=== PATIENT | male | born 1955 | race African-American/Black ===

== ENCOUNTER 2017-03-02 00:41 | Emergency (ER) | payer SELFPAY ==
[~2017-03-02] VITALS: Ht 175.3 cm; Wt 68.2 kg
[~2017-03-02 00:41] MED LIST: AMOXICILLIN500 MG OR; ASPIRIN325 MG PO; BACTRIM DS1 TAB PO; CEPHALEXIN500 MG OR; CIPROFLOXACN500 MG PO; CLONIDINE0.1 MG PO; CLONIDINE0.2 MG PO; HYDRALAZINE25 MG PO; LISINOPRIL; LISINOPRIL10 MG PO; LOPRESSOR50 M1 PO; LORTAB 5/3255 MG PO; MAXIDE1 COMBO PO; METOPROL TAR100 MG PO; METOPROL TAR50 MG PO; NO; NO HOME MEDS; NORVASC PO; ZESTRIL OR
[2017-03-02 01:36] LABS: HEMATOCRIT 39.9 % (39.0-50.0); HEMOGLOBIN 12.9 g/dl (14.0-18.0); IMMATURE GRANULOCYTES 0.3 % (0.0-1.0); MEAN CELL VOLUME 78.9 fL CALC (80.0-100.0); MEAN CORPUSCULAR HGB 25.5 pG CALC (26.0-32.0); MEAN CORPUSCULAR HGB CONC 32.3 g/L CALC (32.0-36.0); NEUT# 4.38 thou/uL (1.82-7.42); RED BLOOD COUNT 5.06 mill/uL (4.70-6.10)
[2017-03-02 01:51] LABS: ALBUMIN 4.4 g/dL (3.2-5.0); ALKALINE PHOSPHATASE 49 u/l (38-126); ANION GAP 16 (6-22 (CALC)); BILIRUBIN, TOTAL 0.5 mg/dL (0.0-1.4); BUN 17 mg/dL (9-20); BUN/CREATININE RATIO 11 (12-20 (CALC)); CALCIUM 9.9 mg/dL (8.4-10.2); CARBON DIOXIDE 25 mmol/l (22-30); CHLORIDE 106 mmol/l (95-108); CREATININE 1.6 mg/dL (0.7-1.3); GFR 44 ML/MIN (>=60 (CALC)); GFR FOR AFR.AMER. 54 ML/MIN (>=60 (CALC)); GLUCOSE 164 mg/dL (75-110); POTASSIUM 4.1 mmol/l (3.5-5.1); SGOT/AST 19 u/l (17-59); SGPT/ALT 27 u/l (21-72); SODIUM 142 mmol/l (137-146); TOTAL PROTEIN 7.5 g/dL (6.3-8.2)
[2017-03-02 02:04] LABS: MYOGLOBIN 120 ng/mL (0 - 121)
[2017-03-02 04:26] LABS: URINE BILIRUBIN - DIPSTICK NEGATIVE (NEGATIVE); URINE BLOOD DIPSTICK NEGATIVE (NEGATIVE); URINE CLARITY CLEAR; URINE COLOR YELLOW; URINE GLUCOSE - DIPSTICK NEGATIVE (NEGATIVE); URINE KETONE TRACE mg/dL (NEGATIVE); URINE LEUK ESTERASE NEGATIVE (NEGATIVE); URINE NITRITE - DIPSTICK NEGATIVE (Negative); URINE PROTEIN - DIPSTICK TRACE mg/dL (NEG-TRACE); URINE SPECIFIC GRAVITY 1.015; URINE UROBILINOGEN - DIPSTICK 0.2 E.U./dL (0.2)
[2017-03-02 04:33] LABS: BARBITURATES NEGATIVE (NEGATIVE); COCAINE NEGATIVE (NEGATIVE); METHADONE NEGATIVE (NEGATIVE); OXCYCODONE NEGATIVE (NEGATIVE); TETRAHYDROCANNABIONOL NEGATIVE (NEGATIVE); TRICYLIC ANTIDEPRESSANTS NEGATIVE (NEGATIVE)
[2017-03-02] MEDS ORDERED: CLONIDINE0.1 MG PO (05:13)
[2017-03-02 05:30] VITALS: BP 113/67
== END 2017-03-02 05:35 | disposition home or self-care (01) | DRG 305 ==
LOC: ED 00:41
PROVIDERS: Emergency Medicine
DX: I10 Essential (primary) hypertension (principal); R41.82 Altered mental status, unspecified

== ENCOUNTER 2017-03-03 11:17 | Emergency (ER) | payer SELFPAY ==
[~2017-03-03] VITALS: Ht 175.3 cm; Wt 80.0 kg
[2017-03-03 11:49] LABS: HEMATOCRIT 40.1 % (39.0-50.0); MEAN CELL VOLUME 78.6 fL CALC (80.0-100.0); MEAN CORPUSCULAR HGB 25.5 pG CALC (26.0-32.0); MEAN CORPUSCULAR HGB CONC 32.4 g/L CALC (32.0-36.0); NEUT# 2.32 thou/uL (1.82-7.42); RED BLOOD COUNT 5.1 mill/uL (4.70-6.10)
[2017-03-03 12:06] LABS: PROTHROMBIN TIME 11.1 SECONDS (9.0-12.5)
[2017-03-03 12:08] LABS: ALBUMIN 4.1 g/dL (3.2-5.0); ALKALINE PHOSPHATASE 45 u/l (38-126); ANION GAP 16 (6-22 (CALC)); BILIRUBIN, TOTAL 0.4 mg/dL (0.0-1.4); BUN 16 mg/dL (9-20); BUN/CREATININE RATIO 10 (12-20 (CALC)); CALCIUM 9.7 mg/dL (8.4-10.2); CARBON DIOXIDE 25 mmol/l (22-30); CHLORIDE 105 mmol/l (95-108); CREATININE 1.6 mg/dL (0.7-1.3); GFR 44 ML/MIN (>=60 (CALC)); GFR FOR AFR.AMER. 54 ML/MIN (>=60 (CALC)); GLUCOSE 109 mg/dL (75-110); LIPASE 79 u/l (23-300); POTASSIUM 4.5 mmol/l (3.5-5.1); SGOT/AST 17 u/l (17-59); SGPT/ALT 28 u/l (21-72); SODIUM 141 mmol/l (137-146); TOTAL PROTEIN 7.2 g/dL (6.3-8.2)
[2017-03-03 12:09] LABS: ETHYL ALCOHOL 0 mg/dl (0-30)
[2017-03-03 12:19] LABS: MYOGLOBIN 100 ng/mL (0 - 121)
[2017-03-03 13:55] LABS: URINE BILIRUBIN - DIPSTICK NEGATIVE (NEGATIVE); URINE BLOOD DIPSTICK NEGATIVE (NEGATIVE); URINE CLARITY TURBID; URINE COLOR YELLOW; URINE GLUCOSE - DIPSTICK NEGATIVE (NEGATIVE); URINE KETONE NEGATIVE (NEGATIVE); URINE LEUK ESTERASE NEGATIVE (NEGATIVE); URINE NITRITE - DIPSTICK NEGATIVE (Negative); URINE PROTEIN - DIPSTICK NEGATIVE (NEG-TRACE); URINE UROBILINOGEN - DIPSTICK 0.2 E.U./dL (0.2)
[2017-03-03 13:59] LABS: BARBITURATES NEGATIVE (NEGATIVE); COCAINE NEGATIVE (NEGATIVE); METHADONE NEGATIVE (NEGATIVE); OXCYCODONE NEGATIVE (NEGATIVE); TETRAHYDROCANNABIONOL NEGATIVE (NEGATIVE); TRICYLIC ANTIDEPRESSANTS NEGATIVE (NEGATIVE)
[2017-03-03 15:10] VITALS: BP 121/58
== END 2017-03-03 15:32 | disposition home or self-care (01) | DRG 149 ==
LOC: ED 11:17
PROVIDERS: Emergency Medicine
DX: R42 Dizziness and giddiness (principal)

== ENCOUNTER 2017-03-03 16:48 | Emergency (ER) | payer SELFPAY | END 2017-03-03 17:02 | disposition left against medical advice (07) | DRG 951 | LOC: ED 16:48 → LWOBS 16:58 | DX: Z91.19 Patient's noncompliance with other medical treatment and regimen (principal) ==

== ENCOUNTER 2017-03-04 11:12 | Emergency (ER) | payer SELFPAY ==
[~2017-03-04] VITALS: Ht 175.3 cm; Wt 75.0 kg
[2017-03-04 12:20] LABS: HEMATOCRIT 36.6 % (39.0-50.0); HEMOGLOBIN 11.8 g/dl (14.0-18.0); IMMATURE GRANULOCYTES 0.2 % (0.0-1.0); MEAN CELL VOLUME 79.6 fL CALC (80.0-100.0); MEAN CORPUSCULAR HGB 25.7 pG CALC (26.0-32.0); MEAN CORPUSCULAR HGB CONC 32.2 g/L CALC (32.0-36.0); NEUT# 3.2 thou/uL (1.82-7.42); RED BLOOD COUNT 4.6 mill/uL (4.70-6.10); RED CELL DISTRI WIDTH 14.2 % (11.5-15.5)
[2017-03-04 12:26] LABS: ALBUMIN 3.9 g/dL (3.2-5.0); BILIRUBIN, TOTAL 0.3 mg/dL (0.0-1.4); CALCIUM 8.8 mg/dL (8.4-10.2); CREATININE 1.7 mg/dL (0.7-1.3); TOTAL PROTEIN 6.8 g/dL (6.3-8.2)
[2017-03-04 14:06] VITALS: BP 141/79
== END 2017-03-04 14:13 | disposition home or self-care (01) | DRG 312 ==
LOC: ED 11:12
PROVIDERS: Emergency Medicine
DX: R55 Syncope and collapse (principal); I10 Essential (primary) hypertension; R94.31 Abnormal electrocardiogram [ECG] [EKG]; R51 Headache

== ENCOUNTER 2017-03-05 12:43 | Observation (INO) | payer SELFPAY ==
[~2017-03-05] VITALS: Ht 175.3 cm; Wt 66.4 kg
[2017-03-05 13:24] LABS: HEMATOCRIT 42.3 % (39.0-50.0); HEMOGLOBIN 13.5 g/dl (14.0-18.0); IMMATURE GRANULOCYTES 0.3 % (0.0-1.0); MEAN CELL VOLUME 79.4 fL CALC (80.0-100.0); MEAN CORPUSCULAR HGB 25.3 pG CALC (26.0-32.0); MEAN CORPUSCULAR HGB CONC 31.9 g/L CALC (32.0-36.0); NEUT# 3.66 thou/uL (1.82-7.42); RED BLOOD COUNT 5.33 mill/uL (4.70-6.10); RED CELL DISTRI WIDTH 14.1 % (11.5-15.5)
[2017-03-05 13:38] LABS: ALBUMIN 4.7 g/dL (3.2-5.0); ALKALINE PHOSPHATASE 69 u/l (38-126); ANION GAP 20 (6-22 (CALC)); BILIRUBIN, TOTAL 0.7 mg/dL (0.0-1.4); BUN 18 mg/dL (9-20); BUN/CREATININE RATIO 12 (12-20 (CALC)); CALCIUM 9.6 mg/dL (8.4-10.2); CARBON DIOXIDE 18 mmol/l (22-30); CHLORIDE 107 mmol/l (95-108); CREATININE 1.6 mg/dL (0.7-1.3); GFR 44 ML/MIN (>=60 (CALC)); GFR FOR AFR.AMER. 54 ML/MIN (>=60 (CALC)); GLUCOSE 73 mg/dL (75-110); SGOT/AST 22 u/l (17-59); SGPT/ALT 28 u/l (21-72); SODIUM 141 mmol/l (137-146); TOTAL PROTEIN 8.4 g/dL (6.3-8.2)
[2017-03-05 13:50] LABS: MYOGLOBIN 64 ng/mL (0 - 121)
[2017-03-05 15:44] VITALS: BP 232/118
[2017-03-05 16:51] LABS: URINE BILIRUBIN - DIPSTICK NEGATIVE (NEGATIVE); URINE BLOOD DIPSTICK NEGATIVE (NEGATIVE); URINE CLARITY CLEAR; URINE COLOR YELLOW; URINE GLUCOSE - DIPSTICK NEGATIVE (NEGATIVE); URINE KETONE 15 mg/dL (NEGATIVE); URINE LEUK ESTERASE NEGATIVE (NEGATIVE); URINE NITRITE - DIPSTICK NEGATIVE (Negative); URINE PROTEIN - DIPSTICK NEGATIVE (NEG-TRACE); URINE SPECIFIC GRAVITY <=1.005; URINE UROBILINOGEN - DIPSTICK 0.2 E.U./dL (0.2)
[2017-03-05 17:13] VITALS: BP 202/118
[2017-03-05 17:46] VITALS: BP 210/104
[2017-03-05 18:32] VITALS: BP 254/130
[2017-03-05 18:48] LABS: BARBITURATES NEGATIVE (NEGATIVE); COCAINE NEGATIVE (NEGATIVE); METHADONE NEGATIVE (NEGATIVE); OXCYCODONE NEGATIVE (NEGATIVE); TETRAHYDROCANNABIONOL NEGATIVE (NEGATIVE); TRICYLIC ANTIDEPRESSANTS NEGATIVE (NEGATIVE)
[2017-03-05 19:47] VITALS: BP 114/66
[2017-03-05 23:40] VITALS: BP 115/68
[2017-03-06 04:22] VITALS: BP 146/89
[2017-03-06 08:34] VITALS: BP 136/84
[2017-03-06 11:11] LABS: ANION GAP 15 (6-22 (CALC)); BUN 15 mg/dL (9-20); BUN/CREATININE RATIO 11 (12-20 (CALC)); CALCIUM 9.3 mg/dL (8.4-10.2); CARBON DIOXIDE 24 mmol/l (22-30); CHLORIDE 107 mmol/l (95-108); CREATININE 1.4 mg/dL (0.7-1.3); GFR 52 ML/MIN (>=60 (CALC)); GFR FOR AFR.AMER. > 60 ML/MIN (>=60 (CALC)); GLUCOSE 128 mg/dL (75-110); POTASSIUM 4.6 mmol/l (3.5-5.1); SODIUM 141 mmol/l (137-146)
[2017-03-06 11:30] VITALS: BP 165/85
[2017-03-06] MEDS ORDERED: CLONIDINE0.1 MG PO (12:22)
[2017-03-06] MEDS ORDERED: AMLODIPINE BESYL5 MG PO (12:23)
== END 2017-03-06 12:40 | disposition home or self-care (01) | DRG 305 ==
LOC: ENPENDDIS → ED 12:43 → ED-I 13:52 → ED 14:34 → MS2 14:35
PROVIDERS: Emergency Medicine; Internal Medicine Geriatric Medicine; ADMIT Internal Medicine; ATTEND Internal Medicine
DX: I16.0 Hypertensive urgency (principal); N18.3 Chronic kidney disease, stage 3 (moderate); I12.9 Hypertensive chronic kidney disease with stage 1 through stage 4 chronic kidney disease, or unspecified chronic kidney disease; Z90.5 Acquired absence of kidney; Z91.14 Patient's other noncompliance with medication regimen
CPT/HCPCS: G0378; J2060

== ENCOUNTER 2017-05-19 13:00 | Observation (INO) | payer SELFPAY ==
[~2017-05-19] VITALS: Ht 175.3 cm; Wt 63.1 kg
[~2017-05-19 13:00] MED LIST changes: +AMLODIPINE BESYL5 MG PO
--- NOTE | 2017-05-19 13:10 | NUR ---
PT ARRIVES AND IMMEDIATELY TAKEN TO ROOM 14 VIA WC IN STABLE CONDITION. DR BLAND TO BEDSIDE
[2017-05-19] MEDS ORDERED: AMLODIPINE5 MG PO (13:17)
--- NOTE | 2017-05-19 13:23 | NUR ---
2ND NITRO GIVEN SL. HR 103. BP 187/86
--- NOTE | 2017-05-19 13:27 | NUR ---
3RD NITRO GIVEN SL. HR 96. BP 150/98 PAIN STARTED AT 7, DOWN TO 4
[2017-05-19 13:30] LABS: HEMATOCRIT 43.1 % (39.0-50.0); HEMOGLOBIN 14.1 g/dl (14.0-18.0); IMMATURE GRANULOCYTES 0.2 % (0.0-1.0); MEAN CELL VOLUME 82.4 fL CALC (80.0-100.0); MEAN CORPUSCULAR HGB CONC 32.7 g/L CALC (32.0-36.0); NEUT# 1.98 thou/uL (1.82-7.42); RED BLOOD COUNT 5.23 mill/uL (4.70-6.10); RED CELL DISTRI WIDTH 14.2 % (11.5-15.5)
[2017-05-19 13:50] LABS: ALBUMIN 4.9 g/dL (3.2-5.0); ALKALINE PHOSPHATASE 56 u/l (38-126); AMYLASE 101 u/l (30-110); ANION GAP 19 (6-22 (CALC)); BILIRUBIN, TOTAL 0.7 mg/dL (0.0-1.4); BUN 19 mg/dL (9-20); BUN/CREATININE RATIO 12 (12-20 (CALC)); CALCIUM 9.9 mg/dL (8.4-10.2); CARBON DIOXIDE 26 mmol/l (22-30); CHLORIDE 105 mmol/l (95-108); CREATININE 1.6 mg/dL (0.7-1.3); GFR 44 ML/MIN (>=60 (CALC)); GFR FOR AFR.AMER. 54 ML/MIN (>=60 (CALC)); GLUCOSE 90 mg/dL (75-110); LIPASE 67 u/l (23-300); POTASSIUM 4.3 mmol/l (3.5-5.1); SGOT/AST 17 u/l (17-59); SGPT/ALT 25 u/l (21-72); SODIUM 146 mmol/l (137-146); TOTAL PROTEIN 8.3 g/dL (6.3-8.2)
[2017-05-19 14:02] LABS: MYOGLOBIN 69 ng/mL (0 - 121)
--- NOTE | 2017-05-19 14:31 | NUR ---
PT RESTING IN ER BED. CARDIAC & RESP WNL. PT DENIES CP, N/V/D. WILL CONTINUE TO MONITOR
--- NOTE | 2017-05-19 15:07 | NUR ---
SBAR PRINTED TO FLOOR
--- NOTE | 2017-05-19 15:10 | NUR ---
PT STATES HIS CP IS BETTER BUT HE HAS A HEADACHE FROM THE NITRO. AWARE. PREPARING FOR ADMIT
--- NOTE | 2017-05-19 15:33 | NUR ---
PT EDUCATED ON NITRO & LOVENOX. NITRO OINTMENT PLACED ON LATERALLY LEFT THIGH
--- NOTE | 2017-05-19 15:42 | NUR ---
Admission Note Report Given to: FAITH Transported by: Wheelchair X Stretcher Transported with: X Nurse Transporter X Patent IV O2 X Map Clerk
--- NOTE | 2017-05-19 15:58 | NUR ---
PT TRANSFERED TO [facility] WITHOUT INCIDENT VIA STRETCHER. RN @ BEDSIDE
--- NOTE | 2017-05-19 16:00 | NUR ---
PT ARRIVED TO THE UNIT VIA STRETCHER, PT AMBULATED WITH A STRONG STEADY GAIT TO THE BED FROM THE STRETCHER, TELE MONITOR IN PLACE HR 80, RESP. EVEN AND UNLABORED, LUNG SOUNDS CLEAR IN ALL CONRAD, SKIN WARM, DRY AND INTACT, 20G LAC IV SALINE LOCKED, STRONG RADIAL AND PEDAL PULSES, ORIENTED TO THE ROOM AND CALL [facility], ADMISSION ASSESSMENT COMPLETE, SEE INTERVENTIONS, SAFETY MEASURES INTRODUCE, CALL [facility] WITHIN REACH
[2017-05-19 17:07] VITALS: BP 168/109
[2017-05-19 17:14] VITALS: BP 180/102
[2017-05-19 19:50] VITALS: BP 138/85
--- NOTE | 2017-05-19 20:00 | NUR ---
I RECEVID PATIENT IN BED A+O*3 AT THE MOMENT NO PRESENT CHEST PAIN, LUNG CLEAR AND ROOM AIR, NO PRESENT ABD PAIN AT THE MOMENT, NO PRESENT EDEMA IN THE ARM AND LEG. THE IV SITE IS RAC# 20 AND NO PRESENT EDEMA AND REDNESS AREA NO IV FLUID AT THE MOMENT.
[2017-05-19 23:30] VITALS: BP 127/74
--- NOTE | 2017-05-20 | NUR ---
HELP THE PATIENT TO GO TO THE BATHROOM. PATIENT NO PRESENT CHEST PAIN IN THIS MOMENT AND GO TO THE BED AND SLEEP.
[2017-05-20 01:38] LABS: HEMATOCRIT 40.6 % (39.0-50.0); HEMOGLOBIN 13.2 g/dl (14.0-18.0); IMMATURE GRANULOCYTES 0.2 % (0.0-1.0); MEAN CORPUSCULAR HGB CONC 32.5 g/L CALC (32.0-36.0); NEUT# 2.23 thou/uL (1.82-7.42); RED BLOOD COUNT 4.89 mill/uL (4.70-6.10)
[2017-05-20 01:58] LABS: ALBUMIN 4.2 g/dL (3.2-5.0); ALKALINE PHOSPHATASE 62 u/l (38-126); ANION GAP 16 (6-22 (CALC)); BILIRUBIN, TOTAL 0.4 mg/dL (0.0-1.4); BUN 19 mg/dL (9-20); BUN/CREATININE RATIO 14 (12-20 (CALC)); CALCIUM 9.1 mg/dL (8.4-10.2); CALCULATED LDLCHOLESTEROL 125 mg/dL (62-129 (CALC)); CARBON DIOXIDE 28 mmol/l (22-30); CHLORIDE 107 mmol/l (95-108); CHOLESTEROL HDL RATIO 4.9 (<4.4 (CALC)); CREATININE 1.4 mg/dL (0.7-1.3); GFR 52 ML/MIN (>=60 (CALC)); GFR FOR AFR.AMER. > 60 ML/MIN (>=60 (CALC)); GLUCOSE 109 mg/dL (75-110); HDL CHOLESTEROL 39 mg/dL (>=40); POTASSIUM 4.8 mmol/l (3.5-5.1); SGOT/AST 18 u/l (17-59); SGPT/ALT 28 u/l (21-72); SODIUM 145 mmol/l (137-146); TOTAL CHOLESTEROL 190 mg/dl (0-199); TOTAL PROTEIN 7.3 g/dL (6.3-8.2); TOTAL TRIGLYCERIDES 132 mg/dl (30-149); VLDL CHOLESTROL 26 mg/dl (4-45 (CALC))
--- NOTE | 2017-05-20 04:26 | NUR ---
PATIENT IN BED SLEEPING NO PRESENT CHEST PAIN AT THE MOMENT AND NO PRESENT EDEMA.
[2017-05-20 04:27] VITALS: BP 139/88
--- NOTE | 2017-05-20 07:00 | NUR ---
SHIFT CHANGE REPORT, PT SLEEPING BUT AROUSES TO VERBAL STIMULI, TELE MONITOR IN PLACE, CALL [facility] IN REACH.
[2017-05-20 08:48] VITALS: BP 159/88
[2017-05-20 11:34] VITALS: BP 167/88
[2017-05-20] MEDS ORDERED: AMLODIPINE5 MG PO (11:54)
[2017-05-20] MEDS ORDERED: ASPIRIN ADULT L81 M2 PO (11:54)
[2017-05-20] MEDS ORDERED: LISINOPRIL10 MG PO (11:54)
--- NOTE | 2017-05-20 12:00 | NUR ---
C/O SEVERE HEADACHE AT THIS TIME, MD NOTIFIED AND GAVE ORDERS, RESTING IN BED, WILL CONTINUE TO MONITOR AND ADDRESS NEEDS.
--- NOTE | 2017-05-20 15:40 | NUR ---
Discharge instructions given. Patient verbalizes understanding of same. Discharged in good condition via Ambulatory to Home with spouse. All belongings sent with pt.
== END 2017-05-20 15:40 | disposition home or self-care (01) | DRG 313 ==
LOC: ED 13:00 → ED-I 14:57 → ED 15:09 → MS2 15:10
PROVIDERS: Emergency Medicine; Internal Medicine; ADMIT Internal Medicine; ATTEND Internal Medicine
DX: R07.9 Chest pain, unspecified (principal); N18.3 Chronic kidney disease, stage 3 (moderate); I12.9 Hypertensive chronic kidney disease with stage 1 through stage 4 chronic kidney disease, or unspecified chronic kidney disease; I16.0 Hypertensive urgency; R63.4 Abnormal weight loss; Z90.5 Acquired absence of kidney; Z91.14 Patient's other noncompliance with medication regimen; Z87.891 Personal history of nicotine dependence
CPT/HCPCS: G0378; J1650

== ENCOUNTER 2017-06-09 06:59 | Emergency (ER) | payer SELFPAY ==
[~2017-06-09] VITALS: Ht 175.3 cm; Wt 80.0 kg
[~2017-06-09 06:59] MED LIST changes: +AMLODIPINE5 MG PO; +ASPIRIN ADULT L81 M2 PO
[2017-06-09 07:24] LABS: HEMATOCRIT 41.6 % (39.0-50.0); HEMOGLOBIN 13.6 g/dl (14.0-18.0); IMMATURE GRANULOCYTES 0.3 % (0.0-1.0); MEAN CELL VOLUME 81.1 fL CALC (80.0-100.0); MEAN CORPUSCULAR HGB 26.5 pG CALC (26.0-32.0); MEAN CORPUSCULAR HGB CONC 32.7 g/L CALC (32.0-36.0); NEUT# 3.21 thou/uL (1.82-7.42); RED BLOOD COUNT 5.13 mill/uL (4.70-6.10)
[2017-06-09 07:54] LABS: ALBUMIN 4.5 g/dL (3.2-5.0); ALKALINE PHOSPHATASE 60 u/l (38-126); ANION GAP 16 (6-22 (CALC)); BILIRUBIN, TOTAL 0.5 mg/dL (0.0-1.4); BUN 12 mg/dL (9-20); BUN/CREATININE RATIO 9 (12-20 (CALC)); CALCIUM 10.2 mg/dL (8.4-10.2); CARBON DIOXIDE 26 mmol/l (22-30); CHLORIDE 106 mmol/l (95-108); CREATININE 1.3 mg/dL (0.7-1.3); GFR 56 ML/MIN (>=60 (CALC)); GFR FOR AFR.AMER. > 60 ML/MIN (>=60 (CALC)); GLUCOSE 98 mg/dL (75-110); POTASSIUM 4.2 mmol/l (3.5-5.1); SGOT/AST 24 u/l (17-59); SGPT/ALT 36 u/l (21-72); SODIUM 144 mmol/l (137-146); TOTAL PROTEIN 7.7 g/dL (6.3-8.2)
[2017-06-09 08:06] LABS: MYOGLOBIN 100 ng/mL (0 - 121)
[2017-06-09] MEDS ORDERED: ULTRAM50 M1 PO (08:56)
[2017-06-09 09:37] LABS: URINE BILIRUBIN - DIPSTICK NEGATIVE (NEGATIVE); URINE BLOOD DIPSTICK NEGATIVE (NEGATIVE); URINE CLARITY CLEAR; URINE COLOR YELLOW; URINE GLUCOSE - DIPSTICK NEGATIVE (NEGATIVE); URINE KETONE NEGATIVE (NEGATIVE); URINE LEUK ESTERASE NEGATIVE (NEGATIVE); URINE NITRITE - DIPSTICK NEGATIVE (Negative); URINE PROTEIN - DIPSTICK NEGATIVE (NEG-TRACE); URINE UROBILINOGEN - DIPSTICK 0.2 E.U./dL (0.2)
[2017-06-09 09:49] LABS: BARBITURATES NEGATIVE (NEGATIVE); COCAINE NEGATIVE (NEGATIVE); METHADONE NEGATIVE (NEGATIVE); OXCYCODONE NEGATIVE (NEGATIVE); TETRAHYDROCANNABIONOL NEGATIVE (NEGATIVE); TRICYLIC ANTIDEPRESSANTS NEGATIVE (NEGATIVE)
[2017-06-09 09:55] VITALS: BP 180/95
== END 2017-06-09 10:10 | disposition home or self-care (01) | DRG 948 ==
LOC: ED 06:59
PROVIDERS: Emergency Medicine
DX: R53.1 Weakness (principal); I10 Essential (primary) hypertension; Z85.46 Personal history of malignant neoplasm of prostate; Z86.14 Personal history of Methicillin resistant Staphylococcus aureus infection

== ENCOUNTER 2017-12-07 14:33 | Emergency (ER) | payer SELFPAY ==
[~2017-12-07] VITALS: Ht 175.3 cm; Wt 80.0 kg
[~2017-12-07 14:33] MED LIST changes: +ULTRAM50 M1 PO
[2017-12-07 15:34] LABS: HEMATOCRIT 42.7 % (39.0-50.0); HEMOGLOBIN 13.9 g/dl (14.0-18.0); IMMATURE GRANULOCYTES 0.4 % (0.0-1.0); MEAN CELL VOLUME 82.1 fL CALC (80.0-100.0); MEAN CORPUSCULAR HGB 26.7 pG CALC (26.0-32.0); MEAN CORPUSCULAR HGB CONC 32.6 g/L CALC (32.0-36.0); NEUT# 1.73 thou/uL (1.82-7.42); RED BLOOD COUNT 5.2 mill/uL (4.70-6.10); RED CELL DISTRI WIDTH 13.6 % (11.5-15.5)
[2017-12-07 15:57] LABS: ANION GAP 20 (6-22 (CALC)); BUN 18 mg/dL (8-23); BUN/CREATININE RATIO 10 (12-20 (CALC)); CARBON DIOXIDE 25 mmol/l (22-30); CHLORIDE 103 mmol/l (95-108); CREATININE 1.9 mg/dL (0.7-1.3); GFR 36 ML/MIN (>=60 (CALC)); GFR FOR AFR.AMER. 44 ML/MIN (>=60 (CALC)); POTASSIUM 4.3 mmol/l (3.5-5.1); SODIUM 143 mmol/l (137-146)
[2017-12-07 19:16] VITALS: BP 167/84
== END 2017-12-07 19:17 | disposition short-term general hospital (02) | DRG 313 ==
LOC: ED 14:33
PROVIDERS: Family Medicine
DX: R07.9 Chest pain, unspecified (principal)

== ENCOUNTER 2018-10-13 16:16 | Emergency (ER) | payer MEDICAID ==
[~2018-10-13] VITALS: Ht 175.3 cm; Wt 80.0 kg
[2018-10-13 17:43] LABS: HEMATOCRIT 44.2 % (39.0-50.0); HEMOGLOBIN 14.2 g/dl (14.0-18.0); IMMATURE GRANULOCYTES 0.2 % (0.0-5.0); MEAN CELL VOLUME 84.4 fL CALC (80.0-100.0); MEAN CORPUSCULAR HGB 27.1 pG CALC (26.0-32.0); MEAN CORPUSCULAR HGB CONC 32.1 g/L CALC (32.0-36.0); NEUT# 3.38 thou/uL (1.82-7.42); RED BLOOD COUNT 5.24 mill/uL (4.70-6.10)
[2018-10-13 18:01] LABS: ALBUMIN 4.4 g/dL (3.2-5.0); ALKALINE PHOSPHATASE 63 u/l (38-126); ANION GAP 15 (6-22 (CALC)); BILIRUBIN, TOTAL 0.5 mg/dL (0.0-1.4); BUN 18 mg/dL (8-23); BUN/CREATININE RATIO 15 (12-20 (CALC)); CARBON DIOXIDE 29 mmol/l (22-30); CHLORIDE 105 mmol/l (95-108); CREATININE 1.2 mg/dL (0.7-1.3); ETHYL ALCOHOL 0 mg/dl (0-30); GFR > 60 ML/MIN (>=60 (CALC)); GFR FOR AFR.AMER. > 60 ML/MIN (>=60 (CALC)); POTASSIUM 4.5 mmol/l (3.5-5.1); SGOT/AST 26 u/l (19-48); SODIUM 145 mmol/l (137-146); TOTAL PROTEIN 7.8 g/dL (6.3-8.2)
[2018-10-13] MEDS ORDERED: AMLODIPINE BESY10 MG PO (18:45)
[2018-10-13 18:53] LABS: URINE BILIRUBIN - DIPSTICK NEGATIVE (NEGATIVE); URINE BLOOD DIPSTICK NEGATIVE (NEGATIVE); URINE COLOR YELLOW; URINE GLUCOSE - DIPSTICK NEGATIVE (NEGATIVE); URINE KETONE 15 mg/dL (NEGATIVE); URINE LEUK ESTERASE NEGATIVE (NEGATIVE); URINE NITRITE - DIPSTICK NEGATIVE (Negative); URINE PH 6.5 (4.5-8.0); URINE PROTEIN - DIPSTICK NEGATIVE (NEG-TRACE); URINE SPECIFIC GRAVITY 1.015; URINE UROBILINOGEN - DIPSTICK 0.2 E.U./dL (0.2)
[2018-10-13 18:57] LABS: COCAINE NEGATIVE (NEGATIVE)
[2018-10-13 18:58] LABS: BARBITURATES NEGATIVE (NEGATIVE); METHADONE NEGATIVE (NEGATIVE); OXCYCODONE NEGATIVE (NEGATIVE); TETRAHYDROCANNABIONOL POSITIVE (NEGATIVE); TRICYLIC ANTIDEPRESSANTS NEGATIVE (NEGATIVE)
[2018-10-13 22:24] VITALS: BP 132/89
== END 2018-10-13 22:23 | disposition short-term general hospital (02) | DRG 125 ==
LOC: ED 16:16
DX: S02.31XA Fracture of orbital floor, right side, initial encounter for closed fracture (principal); I16.9 Hypertensive crisis, unspecified; R47.01 Aphasia; Y04.0XXA Assault by unarmed brawl or fight, initial encounter
CPT/HCPCS: Q9967

== ENCOUNTER 2021-06-22 19:07 | Emergency (ER) | payer MEDICARE ==
[~2021-06-22] VITALS: Ht 175.3 cm; Wt 77.0 kg
[~2021-06-22 19:07] MED LIST changes: +AMLODIPINE BESY10 MG PO
[2021-06-22 20:01] LABS: HEMOGLOBIN 12.4 g/dl (14.0-18.0); IMMATURE GRANULOCYTES 0.9 % (0.0-5.0); MEAN CELL VOLUME 82.5 fL CALC (80.0-100.0); MEAN CORPUSCULAR HGB 27.1 pG CALC (26.0-32.0); MEAN CORPUSCULAR HGB CONC 32.8 g/dL CAL (32.0-36.0); NEUT# 3.1 thou/uL (1.82-7.42); RED BLOOD COUNT 4.58 mill/uL (4.70-6.10); RED CELL DISTRI WIDTH 14.5 % (11.5-15.5)
[2021-06-22 20:06] LABS: HEMATOCRIT 37.8 % (39.0-50.0)
[2021-06-22 20:09] LABS: ALKALINE PHOSPHATASE 59 u/l (38-126); ANION GAP 10 (6-22 (CALC)); BILIRUBIN, TOTAL 0.3 mg/dL (0.0-1.4); BUN 25 mg/dL (8-23); BUN/CREATININE RATIO 14 (12-20 (CALC)); CARBON DIOXIDE 28 mmol/l (22-30); CHLORIDE 106 mmol/l (95-108); CPK 88 u/l (52-200); CREATININE 1.9 mg/dL (0.7-1.3); ETHYL ALCOHOL 0 mg/dl (0-30); GFR 36 ML/MIN (>=60 (CALC)); GFR FOR AFR.AMER. 43 ML/MIN (>=60 (CALC)); LIPASE 131 u/l (23-300); POTASSIUM 3.9 mmol/l (3.5-5.1); SGOT/AST 22 u/l (19-48); SODIUM 141 mmol/l (137-146); TOTAL PROTEIN 7.5 g/dL (6.3-8.2)
[2021-06-22] MEDS ORDERED: METOPROL TAR25 MG PO (20:12)
[2021-06-22] MEDS ORDERED: MAXZIDE-2537.5 MG/TA PO (20:13)
[2021-06-22] MEDS ORDERED: NORVASC5 M1 PO (20:14)
[2021-06-22 20:15] LABS: ACT PARTIAL THROMBO TIME 23.2 SECONDS (20.0-32.5)
[2021-06-22 21:02] LABS: URINE BILIRUBIN - DIPSTICK NEGATIVE (NEGATIVE); URINE BLOOD DIPSTICK NEGATIVE (NEGATIVE); URINE COLOR YELLOW; URINE GLUCOSE - DIPSTICK NEGATIVE (NEGATIVE); URINE KETONE NEGATIVE (NEGATIVE); URINE LEUK ESTERASE NEGATIVE (NEGATIVE); URINE PH 7.5 (4.5-8.0); URINE PROTEIN - DIPSTICK NEGATIVE (NEG-TRACE); URINE UROBILINOGEN - DIPSTICK 0.2 E.U./dL (0.2)
[2021-06-22 21:05] LABS: URINE NITRITE - DIPSTICK NEGATIVE (Negative)
[2021-06-22 21:33] VITALS: BP 145/82
== END 2021-06-22 21:37 | disposition left against medical advice (07) ==
LOC: ED 19:07
DX: R55 Syncope and collapse (principal); E86.0 Dehydration; F14.10 Cocaine abuse, uncomplicated; I10 Essential (primary) hypertension; I25.2 Old myocardial infarction; Z91.19 Patient's noncompliance with other medical treatment and regimen; Z20.822 Contact with and (suspected) exposure to COVID-19

== ENCOUNTER 2022-07-20 16:08 | Emergency (ER) | payer MEDICARE ==
[~2022-07-20] VITALS: Ht 175.3 cm; Wt 77.2 kg
[~2022-07-20 16:08] MED LIST changes: +MAXZIDE-2537.5 MG/TA PO; +METOPROL TAR25 MG PO; +NORVASC5 M1 PO
[2022-07-20 16:37] LABS: HEMOGLOBIN 14.3 g/dl (14.0-18.0); IMMATURE GRANULOCYTES 0.2 % (0.0-5.0); MEAN CELL VOLUME 82.9 fL CALC (80.0-100.0); MEAN CORPUSCULAR HGB 26.9 pG CALC (26.0-32.0); MEAN CORPUSCULAR HGB CONC 32.4 g/dL CAL (32.0-36.0); NEUT# 2.87 thou/uL (1.82-7.42); RED BLOOD COUNT 5.32 mill/uL (4.70-6.10); RED CELL DISTRI WIDTH 14.4 % (11.5-15.5)
[2022-07-20 16:48] LABS: HEMATOCRIT 44.1 % (39.0-50.0)
[2022-07-20 17:01] LABS: URINE BILIRUBIN - DIPSTICK NEGATIVE (NEGATIVE); URINE BLOOD DIPSTICK NEGATIVE (NEGATIVE); URINE COLOR YELLOW; URINE GLUCOSE - DIPSTICK NEGATIVE (NEGATIVE); URINE KETONE NEGATIVE (NEGATIVE); URINE LEUK ESTERASE NEGATIVE (NEGATIVE); URINE PH 7.5 (4.5-8.0); URINE PROTEIN - DIPSTICK NEGATIVE (NEG-TRACE); URINE UROBILINOGEN - DIPSTICK 0.2 E.U./dL (0.2)
[2022-07-20 17:02] LABS: URINE NITRITE - DIPSTICK NEGATIVE (Negative)
[2022-07-20 17:06] LABS: BILIRUBIN, TOTAL 0.3 mg/dL (0.0-1.4); CREATININE 1.5 mg/dL (0.7-1.3); TOTAL PROTEIN 8.4 g/dL (6.3-8.2)
[2022-07-20 17:07] LABS: ALBUMIN 4.9 g/dL (3.2-5.0)
[2022-07-20] MEDS ORDERED: OMEPRAZOLE DR40 MG PO (19:26)
[2022-07-20] MEDS ORDERED: DICYCLOMINE10 MG PO (19:26)
[2022-07-20 19:32] VITALS: BP 157/99
== END 2022-07-20 19:56 | disposition home or self-care (01) ==
LOC: ED 16:08
PROVIDERS: Nurse Practitioner
DX: K52.9 Noninfective gastroenteritis and colitis, unspecified (principal); I10 Essential (primary) hypertension; Z90.5 Acquired absence of kidney
CPT/HCPCS: Q9967

== ENCOUNTER 2022-08-04 10:00 | Emergency (ER) | payer MEDICARE ==
[2022-08-04] VITALS (26 sets, daily range): BP systolic 128–166; BP diastolic 71–119
[~2022-08-04] VITALS: Ht 175.3 cm; Wt 77.2 kg
[~2022-08-04 10:00] MED LIST changes: +DICYCLOMINE10 MG PO; +OMEPRAZOLE DR40 MG PO
[2022-08-04 11:15] LABS: URINE BILIRUBIN - DIPSTICK NEGATIVE (NEGATIVE); URINE BLOOD DIPSTICK MODERATE (NEGATIVE); URINE COLOR YELLOW; URINE GLUCOSE - DIPSTICK NEGATIVE (NEGATIVE); URINE KETONE 15 mg/dL (NEGATIVE); URINE PH 8.5 (4.5-8.0); URINE PROTEIN - DIPSTICK 100 mg/dL (NEG-TRACE)
[2022-08-04 11:16] LABS: HEMATOCRIT 39.1 % (39.0-50.0); IMMATURE GRANULOCYTES 0.5 % (0.0-5.0); MEAN CELL VOLUME 82.3 fL CALC (80.0-100.0); MEAN CORPUSCULAR HGB 27.4 pG CALC (26.0-32.0); MEAN CORPUSCULAR HGB CONC 33.2 g/dL CAL (32.0-36.0); NEUT# 13.47 thou/uL (1.82-7.42); RED BLOOD COUNT 4.75 mill/uL (4.70-6.10); RED CELL DISTRI WIDTH 14.2 % (11.5-15.5)
[2022-08-04 11:19] LABS: URINE LEUK ESTERASE MODERATE (NEGATIVE); URINE NITRITE - DIPSTICK NEGATIVE (Negative)
[2022-08-04 11:25] LABS: URINE WBC 50-100 WBC/hpf (0-5)
[2022-08-04 11:27] LABS: URINE BACTERIA FEW hpf
[2022-08-04 11:31] LABS: ALBUMIN 4.3 g/dL (3.2-5.0); CREATININE 1.6 mg/dL (0.7-1.3); POTASSIUM 4.1 mmol/l (3.5-5.1); TOTAL PROTEIN 7.8 g/dL (6.3-8.2)
[2022-08-04 11:32] LABS: BILIRUBIN, TOTAL 0.6 mg/dL (0.0-1.4)
[2022-08-04] MEDS ORDERED: LEVAQUIN750 M1 PO (16:42)
[2022-08-04] MEDS ORDERED: TAMSULOSIN0.4 MG PO (16:42)
[2022-08-04] MEDS ORDERED: METRONIDAZOLE500 MG PO (16:42)
== END 2022-08-04 17:30 | disposition home or self-care (01) ==
LOC: ED 10:00
PROVIDERS: Emergency Medicine
PROC: 0T9B70Z Drainage of Bladder with Drainage Device, Via Natural or Artificial Opening (ICD-10-PCS; principal; 2022-08-04)
DX: R33.9 Retention of urine, unspecified (principal); R10.30 Lower abdominal pain, unspecified; I10 Essential (primary) hypertension; R82.71 Bacteriuria